=== PATIENT | female | born 1985 | race Caucasian/White ===

== ENCOUNTER → 2017-11-25 | Outpatient (CLI) | payer MEDICAID ==
[~2017-11-25] MED LIST: FERR325T PO; IBUP600 PO; OXYC1SOL5 PO
== END ==
LOC: HPND 13:04
PROVIDERS: ATTEND Obstetrics & Gynecology
DX: O36.63X0 Maternal care for excessive fetal growth, third trimester, not applicable or unspecified (principal)
CPT/HCPCS: 76816

== ENCOUNTER → 2018-01-11 | Outpatient (CLI) | payer MEDICAID | LOC: HPND 08:31 | PROVIDERS: ATTEND Obstetrics & Gynecology | DX: O36.63X0 Maternal care for excessive fetal growth, third trimester, not applicable or unspecified (principal); O09.293 Supervision of pregnancy with other poor reproductive or obstetric history, third trimester | CPT/HCPCS: 76816 ==

== ENCOUNTER 2018-01-20 09:30 | Inpatient (IN) | payer MEDICAID ==
[2018-01-20] VITALS (9 sets, daily range): BP systolic 98–147; BP diastolic 58–92; PULSE 50–80; RESP 11–20; TEMP 97.7–98.8; O2SAT 95–99
[~2018-01-20] VITALS: Ht 152.4 cm; Wt 86.0 kg
[2018-01-20] MEDS ORDERED: LACTATED RINGER'S 1000 ML INJ 1,000 ML IV ONE (09:50)
[2018-01-20] MEDS ORDERED: LACTATED RINGER'S 1000 ML INJ 1,000 ML IV SCH ×2 (10:20→18:39)
[2018-01-20] MEDS ORDERED: ceFAZolin 2 GM in NS 100 ML IV SCH (10:45)
[2018-01-20 10:54] LABS: AUTOMATED NEUTROPHIL # 7.7 TH/MM3 (1.8-7.7); BASOPHIL # 0.1 TH/MM3 (0-0.2); BASOPHIL % 0.6 % (0.0-2.0); EOSINOPHIL # 0.1 TH/MM3 (0-0.4); EOSINOPHIL % 0.9 % (0.0-4.0); HEMATOCRIT 30.8 % (35.0-46.0); HEMOGLOBIN 9.9 GM/DL (11.6-15.3); LYMPH % 20.7 % (9.0-44.0); LYMPHOCYTE # 2.2 TH/MM3 (1.0-4.8); MEAN CELL VOLUME 74.3 FL (80.0-100.0); MEAN CORPUSCULAR HEMOGLOBIN 23.8 PG (27.0-34.0); MEAN PLATELET VOLUME 8.6 FL (7.0-11.0); MONO % 6.6 % (0.0-8.0); MONOCYTE # 0.7 TH/MM3 (0-0.9); NEUT % 71.2 % (16.0-70.0); PLATELET COUNT 177 TH/MM3 (150-450); RED BLOOD COUNT 4.15 MIL/MM3 (4.00-5.30); RED CELL DISTRIBUTION WIDTH 18.4 % (11.6-17.2); WHITE BLOOD COUNT 10.8 TH/MM3 (4.0-11.0)
[2018-01-20] MEDS ORDERED: MORPHINE SULFATE PF 5 MG/10 ML VIAL ONE (10:59)
[2018-01-20] MEDS ORDERED: ACETAMINOPHEN 1000 MG/100 ML 100 ML IV ONE (10:59)
[2018-01-20] MEDS ORDERED: ceFAZolin 2 GM PREMIX 50 ML IV SCH (11:00)
[2018-01-20 11:03] LABS: BILIRUBIN, URINE NEG (NEG); BLOOD, URINE NEG (NEG); GLUCOSE,URINE NEG (NEG); KETONE, URINE NEG (NEG); MUCUS URINE FEW /lpf (OCC); NITRITE,URINE NEG (NEG); PH, URINE 6.5 (5.0-8.5); SQUAMOUS EPITHELIAL CELL URINE 6 /hpf (0-5); URINE COLOR YELLOW (YELLW/STRAW); URINE LEUKOCYTE ESTERASE NEG (NEG)
[2018-01-20] MEDS ORDERED: CITRIC ACID-SODIUM CITRATE LIQ 30 ML UDC PO SCH (11:30)
[2018-01-20] MEDS ORDERED: LACTATED RINGER'S 1000 ML INJ 2,000 ML IV ONE (12:00)
[2018-01-20] MEDS ORDERED: SUCCINYLCHOLINE CHLORIDE 100 MG/5 ML SYRINGE IV PUSH ONE (12:00)
[2018-01-20] MEDS ORDERED: OXYTOCIN 10 UNIT/ML AMP IV ONE (12:00)
[2018-01-20] MEDS ORDERED: ONDANSETRON HCL 4 MG/2 ML VIAL IV ONE (12:00)
[2018-01-20] MEDS ORDERED: PROPOFOL 200 MG/20 ML AMP IV ONE (12:00)
[2018-01-20] MEDS ORDERED: DEXAMETHASONE SOD PHOS 4 MG/ML VIAL IV ONE (12:00)
[2018-01-20] MEDS ORDERED: KETOROLAC TROMETHAMINE 30 MG/ML (IVP) VIAL IV PUSH ONE (12:00)
[2018-01-20] MEDS ORDERED: ONDANSETRON ODT 4 MG TAB PO PRN (13:45)
[2018-01-20] MEDS ORDERED: SODIUM CHLORIDE 0.9% FLUSH 10 ML FLUSH IV FLUSH PRN (13:45)
[2018-01-20] MEDS ORDERED: oxyCODONE/ACETAMINOPHEN 5 MG/325 MG TAB PO PRN (13:45)
[2018-01-20] MEDS ORDERED: OXYTOCIN 30 UNITS-500ML PREMIX 500 ML IV ONE (13:45)
[2018-01-20] MEDS ORDERED: DOCUSATE SODIUM 50 MG/SENNA 8.6 MG TAB PO PRN (13:45)
[2018-01-20] MEDS ORDERED: ACETAMINOPHEN 325 MG TAB PO PRN (13:45)
[2018-01-20] MEDS ORDERED: SIMETHICONE 80 MG CHEWABLE TAB PO PRN (13:45)
[2018-01-20] MEDS ORDERED: NALOXONE HCL 0.4 MG/ML AMP IV PUSH PRN (14:15)
[2018-01-20] MEDS ORDERED: MORPHINE SULFATE 30 MG/30 ML PCA IV SCH (14:15)
[2018-01-20] MEDS: PCA - TOTAL MG MORPHINE DELIVERED PER SHIFT SCH (14:15)
[2018-01-20] MEDS ORDERED: diphenhydrAMINE HCL 25 MG CAP PO PRN (14:15)
[2018-01-20] MEDS ORDERED: OXYTOCIN 30 UNITS-500ML PREMIX 500 ML ONE (14:15)
--- NOTE | 2018-01-20 14:40 | HHI.HP ---
HPI Chief Complaint Repeat and Bilateral Tubal Ligation. Date Seen: January 20, 2018 Travel History International Travel<30 Days: No Contact w/Intl Traveler<30Days: No Known Affected Area: No History of Present Illness HPI Patient is a 32 year old at 39-0/7 weeks gestation who presents today for repeat and bilateral tubal ligation. She denies any concerns or issues today. No contractions, no vaginal bleeding or discharge. No gush or leaking of fluid. Positive movement. History Past Medical History Medical History: Denies Significant Hx Obstetric History Obstetric History 2007 and 2015 Past Surgical History Narrative Surgical x 2 Family History Family History: Negative Social History Alcohol Use: No Tobacco Use: No Substance Abuse: No Allergies-Medications (Allergen,Severity, Reaction): Coded Allergies: No Known Allergies (Verified , 12/02/15) Home Meds Discontinued Reported Medications Ferrous Sulfate (Iron) 325 Mg Tab, 325 MG PO DAILY, TAB 12/02/15 Discontinued Scripts Oxycodone W/ Acetaminophen (Oxycodone/Acetaminophen 5-325 mg/5Ml) 5 mg/325 mg Tab, 1 TAB PO Q4H Y for moderate pain, #30 TAB Prov:Wilver Cardona MD 12/04/15 Ibuprofen (Motrin 600 Mg Tab) 600 Mg Tab, 600 MG PO Q6H for Pain Management, # 30 TAB 1 Refill Prov:Wilver Cardona MD 12/04/15 Review of Systems Except as stated in HPI: all other systems reviewed are Neg General / Constitutional: No: Fever, Chills Eyes: No: Visual changes HENT: No: Headaches Cardiovascular: No: Chest Pain or Discomfort Respiratory: No: Short of Breath Gastrointestinal: No: Nausea, Vomiting Genitourinary: No: Hematuria, Pelvic Pain, Discharge, Vaginal Bleeding Musculoskeletal: No: Edema Neurologic: No: Headache Psychiatric: No: Substance Abuse Physical Exam Vital Signs Date Time Temp Pulse Resp B/P (MAP) Pulse Ox O2 Delivery O2 Flow Rate FiO2 01/20/18 14:36 95 01/20/18 14:36 67 20 132/61 (84) 01/20/18 14:21 18 97 01/20/18 14:21 75 132/58 (82) 01/20/18 14:07 73 19 147/92 (110) 99 01/20/18 13:52 98.8 80 15 97 01/20/18 13:52 119/69 (86) 01/20/18 10:06 79 98/64 (75) Narrative GENERAL: Well-nourished, well-developed patient. SKIN: Warm and dry. HEAD: Normocephalic and atraumatic. EYES: No scleral icterus. No injection or drainage. ENT: No nasal drainage noted. Mucous membranes pink. Airway patent. NECK: Supple, trachea midline. No JVD. CARDIOVASCULAR: Regular rate and rhythm without murmurs, gallops, or rubs. RESPIRATORY: Breath sounds equal bilaterally. No accessory muscle use. ABDOMEN/GI: Abdomen soft, non-tender, bowel sounds present, no rebound, no guarding Gravid to 39 weeks size Fundal Height: 39 GENITOURINARY: External Genitalia: intact and normal in appearance Membranes: intact Uterine Contractions: occasional FHT's: Category: I Baseline: 140 Reactive: + Variability: moderate Decels: none EXTREMITIES: No cyanosis or edema. BACK: Nontender without obvious deformity. NEUROLOGICAL: Awake and alert. Motor and sensory grossly within normal limits. Normal speech. Caprini VTE Risk Assessment Caprini VTE Risk Assessment: No/Low Risk (score <= 1) Caprini Risk Assessment Model Point Value = 1 Point Value = 2 Point Value = 3 Point Value = 5 Age 41-60 Minor surgery BMI > 25 kg/m2 Swollen legs Varicose veins or History of unexplained or recurrent spontaneous Oral contraceptives or hormone replacement Sepsis (< 1 month) Serious lung disease, including pneumonia (< 1 month) Abnormal pulmonary function Acute myocardial infarction Congestive heart failure (< 1 month) History of inflammatory bowel disease Medical patient at bed rest Age 61-74 Arthroscopic surgery Major open surgery (> 45 min) Laparoscopic surgery (> 45 min) Malignancy Confined to bed (> 72 hours) Immobilizing plaster cast Central venous access Age >= 75 History of VTE Family history of VTE Factor V Leiden Prothrombin [id number] Lupus anticoagulant Anticardiolipin antibodies Elevated serum homocysteine Heparin-induced thrombocytopenia Other congenital or acquired thrombophilia Stroke (< 1 month) Elective arthroplasty Hip, pelvis, or leg fracture Acute spinal cord injury (< 1 month) Prophylaxis Regimen Total Risk Factor Score Risk Level Prophylaxis Regimen 0-1 Low Early ambulation 2 Moderate Order ONE of the following: *Sequential Compression Device (SCD) *Heparin 5000 units SQ BID 3-4 Higher Order ONE of the following medications: *Heparin 5000 units SQ TID *Enoxaparin/Lovenox 40 mg SQ daily (WT < 150 kg, CrCl > 30 mL/min) *Enoxaparin/Lovenox 30 mg SQ daily (WT < 150 kg, CrCl > 10-29 mL/min) *Enoxaparin/Lovenox 30 mg SQ BID (WT < 150 kg, CrCl > 30 mL/min) AND/OR *Sequential Compression Device (SCD) 5 or more Highest Order ONE of the following medications: *Heparin 5000 units SQ TID (Preferred with Epidurals) *Enoxaparin/Lovenox 40 mg SQ daily (WT < 150 kg, CrCl > 30 mL/min) *Enoxaparin/Lovenox 30 mg SQ daily (WT < 150 kg, CrCl > 10-29 mL/min) *Enoxaparin/Lovenox 30 mg SQ BID (WT < 150 kg, CrCl > 30 mL/min) AND *Sequential Compression Device (SCD) Data Data Vital Signs Reviewed: Yes Orders Orders Admit To Inpatient (01/20/18 ) Lactated Ringer's 1000 Ml Inj (Lr 1000 M (01/20/18 09:50) Lactated Ringer's 1000 Ml Inj (Lr 1000 M (01/20/18 10:20) Cefazolin 2 Gm Premix (Ancef 2 Gm Premix (01/20/18 11:00) Citric Acid-Sodium Citrate Liq (Bicitra (01/20/18 11:30) Type And Screen (01/20/18 09:50) Complete Blood Count With Diff (01/20/18 09:50) Urinalysis - C+S If Indicated (01/20/18 09:50) Drug Screen, Random Urine (01/20/18 09:50) Inpatient Certification (01/20/18 ) Code Status (01/20/18 09:50) Cefazolin Inj (Ancef Inj) (01/20/18 10:45) Morphine Pf Inj (Duramorph Pf 0.5 Mg/Ml (01/20/18 10:59) Acetaminophen 1000 Mg/100 Ml (Ofirmev 10 (01/20/18 10:59) Vital Signs (Adult) Q4HX24,Q12H (01/20/18 13:39) Activity Bed Rest (01/20/18 13:39) ^ Discontinue (01/21/18 13:39) Remove Dressing (01/21/18 13:39) ^ Binder (01/20/18 ) ^ Rhogam (01/20/18 13:39) Diet Regular Basic (01/20/18 Lunch) Lactated Ringer's 1000 Ml Inj (Lr 1000 M (01/20/18 18:39) Oxytocin 30 Units-500ml Premix (Pitocin (01/20/18 13:45) Oxytocin 30 Units-500ml Premix (Pitocin (01/20/18 18:45) Sodium Chloride 0.9% Flush (Ns Flush) (01/20/18 21:00) Sodium Chloride 0.9% Flush (Ns Flush) (01/20/18 13:45) Simethicone Chew (Mylicon Chew) (01/20/18 13:45) Acetaminophen (Tylenol) (01/20/18 13:45) Ibuprofen (Motrin) (01/20/18 13:45) Oxycodone-Acetamin 5-325 Mg (Percocet (01/20/18 13:45) Oxycodone-Acetamin 5-325 Mg (Percocet (01/20/18 13:45) Docusate Sodium-Senna (Maribel-Colace) (01/20/18 13:45) Zolpidem (Ambien) (01/20/18 21:00) Fzrpqnk-Rwesz-Pwsqffe Inj (M-M-R Ii Inj) (01/21/18 16:00) Btjm-Pgb-Ehtsyg (Booster) Inj (Boostrix (01/21/18 16:00) Complete Blood Count With Diff (01/21/18 06:00) Remove Urinary Catheter .ONCE (01/21/18 13:39) Ondansetron Odt (Zofran Odt) (01/20/18 13:45) Oxytocin 30 Units-500ml Premix (Pitocin (01/20/18 14:15) ^ Monitor (01/20/18 14:15) Notify Dr: Blood Pressure (01/20/18 14:15) Notify Dr: Respiratory Rate (01/20/18 14:15) Notify Dr: Other (01/20/18 14:15) ^ Medication Alert (01/20/18 14:15) Naloxone Inj (Narcan Inj) (01/20/18 14:15) Diphenhydramine (Benadryl) (01/20/18 14:15) Morphine 1 Mg/Ml Pre K Teacher (Morphine 1 Mg/Ml P (01/20/18 14:15) Pre K Teacher Total Dose - Morphine (01/20/18 14:15) Fentanyl Inj (Fentanyl Inj) (01/20/18 14:39) Group B Strep: Negative Labs Laboratory Tests Test 01/20/18 10:15 White Blood Count 10.8 Red Blood Count 4.15 Hemoglobin 9.9 Hematocrit 30.8 Mean Corpuscular Volume 74.3 Mean Corpuscular Hemoglobin 23.8 Mean Corpuscular Hemoglobin Concent 32.0 Red Cell Distribution Width 18.4 Platelet Count 177 Mean Platelet Volume 8.6 Neutrophils (%) (Auto) 71.2 Lymphocytes (%) (Auto) 20.7 Monocytes (%) (Auto) 6.6 Eosinophils (%) (Auto) 0.9 Basophils (%) (Auto) 0.6 Neutrophils # (Auto) 7.7 Lymphocytes # (Auto) 2.2 Monocytes # (Auto) 0.7 Eosinophils # (Auto) 0.1 Basophils # (Auto) 0.1 CBC Comment DIFF FINAL Differential Comment Urine Color YELLOW Urine Turbidity CLEAR Urine pH 6.5 Urine Specific [place] 1.016 Urine Protein TRACE Urine Glucose (UA) NEG Urine Ketones NEG Urine Occult Blood NEG Urine Nitrite NEG Urine Bilirubin NEG Urine Urobilinogen LESS THAN 2.0 Urine Leukocyte Esterase NEG Urine RBC LESS THAN 1 Urine Squamous Epithelial Cells 6 Urine Mucus FEW Microscopic Urinalysis Comment CULT NOT INDICATED Urine Opiates Screen NEG Urine Barbiturates Screen NEG Urine Amphetamines Screen NEG Urine Benzodiazepines Screen NEG Urine Cocaine Screen NEG Urine Cannabinoids Screen NEG Assessment/Plan Assessment and Plan 32 year old at 39-0/7 weeks gestation. 1. IUP- Category I tracing, reassuring. 2. Repeat and bilateral tubal ligation. 3. GBS negative. dw Becka Ibrahim MD R3 January 20, 2018 14:40
[2018-01-20] MEDS ORDERED: fentaNYL CITRATE 250 MCG/5 ML AMP IV ONE (16:00)
[2018-01-20] MEDS ORDERED: EPIDURAL-NO SYSTEMIC NARCOTICS PRN (16:00)
[2018-01-20] MEDS ORDERED: EPIDURAL-DO NOT ADMINISTER ANTICOAGULANTS PRN (16:00)
[2018-01-20] MEDS ORDERED: EPIDURAL-DIPHENHYDRAMINE HCL 50 MG CAP PO PRN (16:00)
[2018-01-20] MEDS ORDERED: EPIDURAL-NALOXONE HCL 0.4 MG/ML AMP IV PUSH PRN (16:00)
[2018-01-20] MEDS ORDERED: EPIDURAL-DIPHENHYDRAMINE HCL 50 MG/ML VIAL IV PUSH PRN (16:00)
[2018-01-20] MEDS ORDERED: OXYTOCIN 30 UNITS-500ML PREMIX 500 ML IV PRN (18:45)
[2018-01-20] MEDS ORDERED: ZOLPIDEM TARTRATE 5 MG TAB PO PRN (21:00)
[2018-01-20] MEDS ORDERED: SODIUM CHLORIDE 0.9% FLUSH 10 ML FLUSH IV FLUSH SCH (21:00)
[2018-01-21 04:01] VITALS: BP 97/59; PULSE 61; RESP 17; TEMP 99.3
[2018-01-21] MEDS: IBUPROFEN 600 MG TAB PO PRN ×2 (05:27→15:21)
[2018-01-21 05:56] LABS: AUTOMATED NEUTROPHIL # 9.8 TH/MM3 (1.8-7.7); BASOPHIL # 0.1 TH/MM3 (0-0.2); BASOPHIL % 0.7 % (0.0-2.0); EOSINOPHIL % 0.2 % (0.0-4.0); HEMATOCRIT 27.4 % (35.0-46.0); HEMOGLOBIN 8.6 GM/DL (11.6-15.3); LYMPH % 16.9 % (9.0-44.0); LYMPHOCYTE # 2.2 TH/MM3 (1.0-4.8); MEAN CELL VOLUME 74.1 FL (80.0-100.0); MEAN CORPUSCULAR HEMOGLOBIN 23.3 PG (27.0-34.0); MEAN CORPUSCULAR HGB CONC 31.4 % (32.0-36.0); MEAN PLATELET VOLUME 8.6 FL (7.0-11.0); MONO % 6.1 % (0.0-8.0); MONOCYTE # 0.8 TH/MM3 (0-0.9); NEUT % 76.1 % (16.0-70.0); PLATELET COUNT 162 TH/MM3 (150-450); RED BLOOD COUNT 3.69 MIL/MM3 (4.00-5.30); RED CELL DISTRIBUTION WIDTH 18.3 % (11.6-17.2); WHITE BLOOD COUNT 12.9 TH/MM3 (4.0-11.0)
[2018-01-21 07:20] VITALS: BP 106/66; PULSE 63; RESP 18; TEMP 98.3
[2018-01-21 07:31] VITALS: BP 106/66; PULSE 63; RESP 18
--- NOTE | 2018-01-21 08:17 | HHI.OB ---
Subjective Post Operative Day: 1 Remarks Doing well Pain is controlled on [employer]MENT MANAGER pump now Baby is doing well Objective Vitals/I&O Vital Signs Date Time Temp Pulse Resp B/P (MAP) Pulse Ox O2 Delivery O2 Flow Rate FiO2 01/21/18 07:31 63 18 106/66 (79) 01/21/18 07:20 63 18 106/66 (79) 01/21/18 07:20 98.3 01/21/18 04:01 99.3 61 17 97/59 (72) 01/20/18 23:56 97.7 53 16 102/63 (76) 01/20/18 21:00 97.9 50 17 106/63 (77) 01/20/18 14:59 98.2 01/20/18 14:58 54 11 137/63 (87) 96 01/20/18 14:58 13 01/20/18 14:55 18 01/20/18 14:36 95 01/20/18 14:36 67 20 132/61 (84) 01/20/18 14:21 18 97 01/20/18 14:21 75 132/58 (82) 01/20/18 14:07 73 19 147/92 (110) 99 01/20/18 13:52 98.8 80 15 97 01/20/18 13:52 119/69 (86) 01/20/18 10:06 79 98/64 (75) Result Diagram: 01/21/18 0442 Objective Remarks GENERAL: Well-nourished, well-developed patient. CARDIOVASCULAR: Regular rate and rhythm without murmurs, gallops, or rubs. RESPIRATORY: Breath sounds equal bilaterally. No accessory muscle use. ABDOMEN/GI: Abdomen soft, non-tender, bowel sounds present. Incision: Clean, dry and intact. Fundus: Firm, non-tender at umbilicus. GENITOURINARY: Light to moderate bleeding. EXTREMITIES: No cyanosis or edema, non-tender, without signs of DVT. Medications and IVs Current Medications Medications (Trade) Dose Ordered Sig/Galileo Route Start Time Stop Time Status Last Admin Lactated Ringer's 1,000 ml @ 100 mls/hr Q10H IV 01/20/18 18:39 01/21/18 14:38 Oxytocin 500 ml @ 100 mls/hr UNSCH X1 PRN IV 01/20/18 18:45 01/21/18 18:44 (NS Flush) 2 ml BID IV FLUSH 01/20/18 21:00 (NS Flush) 2 ml UNSCH PRN IV FLUSH 01/20/18 13:45 (Mylicon Chew) 80 mg QID PRN PO 01/20/18 13:45 (Tylenol) 650 mg Q6H PRN PO 01/20/18 13:45 (Motrin) 600 mg Q6H PRN PO 01/20/18 13:45 01/21/18 05:27 (Percocet 5-325 Mg) 1 tab Q4H PRN PO 01/20/18 13:45 (Percocet 5-325 Mg) 2 tab Q4H PRN PO 01/20/18 13:45 (Maribel-Colace) 2 tab Q12H PRN PO 01/20/18 13:45 (Ambien) 5 mg HS PRN PO 01/20/18 21:00 (M-M-R Ii Inj) 0.5 ml ONCE ONCE SQ 01/21/18 16:00 01/21/18 16:01 (Boostrix Inj) 0.5 ml ONCE ONCE IM 01/21/18 16:00 01/21/18 16:01 (Zofran Odt) 4 mg Q6H PRN PO 01/20/18 13:45 (Narcan Inj) 0.4 mg UNSCH PRN IV PUSH 01/20/18 14:15 (Benadryl) 25 mg Q6H PRN PO 01/20/18 14:15 (Morphine 1 Mg/ ml [employer]NAGER) 30 mg UNSCH IV 01/20/18 14:15 01/20/18 14:55 [employer]GER Dosage Infused (Pha) 1 Q8HR .XX 01/20/18 14:15 ([facility]) NO SYSTEMIC NARCOTICS TO BE GIVEN FO... UNSCH PRN .XX 01/20/18 16:00 01/21/18 15:59 (Narcan Inj) 0.4 mg UNSCH PRN IV PUSH 01/20/18 16:00 01/21/18 15:59 (Benadryl Inj) 25 mg Q6H PRN IV PUSH 01/20/18 16:00 01/21/18 15:59 (Benadryl) 50 mg Q6H PRN PO 01/20/18 16:00 01/21/18 15:59 ([facility]) ALL NURSING DEPARTMENTS UNSCH PRN .XX 01/20/18 16:00 01/21/18 15:59 Assessment/Plan Assessment and Plan POD #1 S/P C/S BTL. Anemia Doing well. Routine care Wilver Cardona MD January 21, 2018 08:17
[2018-01-21] MEDS ORDERED: OXYC1TAB63 PO (08:22)
[2018-01-21] MEDS ORDERED: IBUP-232 PO (08:22)
--- NOTE | 2018-01-21 08:47 | HHI.DCPOC ---
Discharge Care Plan Your Health Problems Are: delivery Report Symptoms to Your Doctor -Temperature above 100.5 degrees -Redness, of incision or excessive or foul smelling drainage -Unusual pain or calf pain -Increased vaginal bleeding -Painful or difficulty urinating -Feelings of extreme sadness or anxiety after 2 weeks Goals to Promote Your Health * To prevent worsening of your condition and complications * To maintain your health at the optimal level Directions to Meet Your Goals Take your medications as prescribed Follow your dietary instruction Follow activity as directed Ensure plenty of rest for recovery Drink fluids for hydration Keep your appointments as scheduled Take your immunizations and boosters as scheduled If your symptoms worsen call your PCP, if no PCP go to Urgent Care Center or Emergency Room Smoking is Dangerous to Your Health. Avoid second hand smoke Call the 24-hour crisis hotline for domestic abuse at M[facility] Burkett January 21, 2018 08:47
[2018-01-21] MEDS: PCA - TOTAL MG MORPHINE DELIVERED PER SHIFT SCH (09:40)
--- NOTE | 2018-01-21 10:52 | MP ---
cc: Wilver Cardona MD DATE OF OPERATION: 01/20/2018 PREOPERATIVE DIAGNOSES: 1. Intrauterine at 39+ weeks. 2. Previous desires repeat. 3. Desires permanent sterilization. POSTOPERATIVE DIAGNOSES: 1. Intrauterine at 39+ weeks. 2. Previous desires repeat. 3. Desires permanent sterilization. PROCEDURE PERFORMED: Repeat low transverse section and bilateral tubal ligation. ANESTHESIA: Spinal, followed by general. SURGEON: Wilver Cardona MD FINDINGS: Normal uterus, normal tubes, normal ovaries, a viable infant with good Apgars. COMPLICATIONS: None. COUNTS: Correct. ESTIMATED BLOOD LOSS: 600 mL. FLUIDS: Crystalloids. CONDITION: The patient tolerated the procedure well, went to the recovery room in good condition. PROCEDURE: Under an adequate level of anesthetic, she was prepped and draped for abdominal surgery. The old Pfannenstiel incision was removed and excised completely. Incision was taken down to the fascia. The fascia was taken off the rectus muscle by blunt and sharp dissection. Once this had been accomplished, the rectus muscles were gently stretched and the peritoneum entered under direct vision without incident. A bladder flap was created over the lower uterine segment and the bladder moved out of harms way. The incision over the uterus was made in a transverse manner and taken down in the midline until the uterine cavity was entered. The vertex was grasped and using suction, the was delivered with gentle fundal pressure. The hypopharynx and nasopharynx were suctioned and the cord was doubly clamped and cut and the was handed to the resuscitation team present. The placenta was removed manually. The uterus was curettaged twice with wet laps and irrigated with a moderate amount of fluid. The uterine incision was then repaired with 2-0 Vicryl in a running locking fashion, the second layer imbricating the first. Hemostasis was excellent. Attention was turned to the fallopian tubes. The left fallopian tube was identified, walked to the fimbriated end, knuckled over and using #2 plain suture, a small portion of that tube was ligated and removed sharply and turned in for pathologic diagnosis. This was repeated on the contralateral side. Hemostasis was excellent. The cul-de-sac and gutters were then cleaned of blood and debris. Irrigation was clear. At this time, the uterus was delivered back into the abdomen. The rectus muscle was reapproximated with 0 Vicryl in an interrupted fashion. The fascia was repaired from lateral to midline with 0 Vicryl bilaterally with 0 Vicryl in a running fashion. Subcu was repaired with 3-0 Vicryl. The skin was repaired with a 4-0 Monocryl in a subcuticular fashion. Steri-Strips were applied. She tolerated the procedure well and was taken to the Recovery Room in good condition. R. MD RONI Carrasco/BELÉN , 10:38 AM , 10:51 AM
[2018-01-21] MEDS: oxyCODONE/ACETAMINOPHEN 5 MG/325 MG TAB PO PRN ×2 (15:22→19:31)
[2018-01-21] MEDS ORDERED: DIPHTH/TETANUS/ACEL PERTUSSIS (BOOSTER) 0.5 ML VIAL/PFS IM ONE (16:00)
[2018-01-21] MEDS ORDERED: MEASLES, MUMPS, RUBELLA VACCINE 0.5 ML VIAL SQ ONE (16:00)
[2018-01-21 20:24] VITALS: BP 107/69; PULSE 55; RESP 17; TEMP 98.1
[2018-01-22] MEDS: oxyCODONE/ACETAMINOPHEN 5 MG/325 MG TAB PO PRN ×3 (01:03→12:55)
[2018-01-22] MEDS: IBUPROFEN 600 MG TAB PO PRN ×2 (01:03→08:29)
[2018-01-22 08:00] VITALS: BP 112/69; PULSE 66; RESP 20; TEMP 98.2; O2SAT 96
--- NOTE | 2018-01-22 08:06 | HHI.OB ---
Subjective Post Operative Day: 2 Remarks Doing well, ambulating, voiding, pain well controlled, vaginal bleeding less than menses. Objective Vitals/I&O Vital Signs Date Time Temp Pulse Resp B/P (MAP) Pulse Ox O2 Delivery O2 Flow Rate FiO2 01/21/18 20:24 98.1 55 17 107/69 (82) 01/21/18 09:40 18 Result Diagram: 01/21/18 0442 Objective Remarks GENERAL: Well-nourished, well-developed patient. CARDIOVASCULAR: Regular rate and rhythm without murmurs, gallops, or rubs. RESPIRATORY: Breath sounds equal bilaterally. No accessory muscle use. ABDOMEN/GI: Abdomen soft, non-tender, bowel sounds present. Incision: Clean, dry and intact. Fundus: Firm, non-tender at umbilicus. GENITOURINARY: Light to moderate bleeding. EXTREMITIES: No cyanosis or edema, non-tender, without signs of DVT. Medications and IVs Current Medications Medications (Trade) Dose Ordered Sig/Galileo Route Start Time Stop Time Status Last Admin (NS Flush) 2 ml BID IV FLUSH 01/20/18 21:00 (NS Flush) 2 ml UNSCH PRN IV FLUSH 01/20/18 13:45 (Mylicon Chew) 80 mg QID PRN PO 01/20/18 13:45 (Tylenol) 650 mg Q6H PRN PO 01/20/18 13:45 (Motrin) 600 mg Q6H PRN PO 01/20/18 13:45 01/22/18 01:03 (Percocet 5-325 Mg) 1 tab Q4H PRN PO 01/20/18 13:45 01/22/18 01:03 (Percocet 5-325 Mg) 2 tab Q4H PRN PO 01/20/18 13:45 (Maribel-Colace) 2 tab Q12H PRN PO 01/20/18 13:45 01/21/18 15:21 (Ambien) 5 mg HS PRN PO 01/20/18 21:00 (Zofran Odt) 4 mg Q6H PRN PO 01/20/18 13:45 (Benadryl) 25 mg Q6H PRN PO 01/20/18 14:15 Assessment/Plan Assessment and Plan 32-year-old status post repeat LTCS and BTL at 39 weeks 1. Postoperative day #2: Afebrile, vital signs stable, meeting milestones, discussed options of discharge home today versus tomorrow, patient will let nursing know. Discussed postoperative and precautions, expectations and follow-up. -Female . 2. Anemia: Patient asymptomatic, begin iron as an outpatient. Dung Browning MD January 22, 2018 08:06
== END 2018-01-22 13:27 | disposition home or self-care (01) | DRG 766 ==
LOC: H2EB 09:30 → H1EA 15:40
PROVIDERS: ADMIT Obstetrics & Gynecology; ATTEND Obstetrics & Gynecology
PROC: 10D00Z1 Extraction of Products of Conception, Low, Open Approach (ICD-10-PCS; principal; 2018-01-20)
PROC: 0UB70ZZ Excision of Bilateral Fallopian Tubes, Open Approach (ICD-10-PCS; 2018-01-20)
DX: O34.211 Maternal care for low transverse scar from previous cesarean delivery (principal); D64.9 Anemia, unspecified; O99.02 Anemia complicating childbirth; Z30.2 Encounter for sterilization; Z37.0 Single live birth; Z3A.39 39 weeks gestation of pregnancy
CPT/HCPCS: 59025; 80307; 81001; 85025; 86850; 86900; 86901; 88302; 90715; J0131; J0330; J0690; J1100; J1885; J2270; J2274; J2405; J2590; J3010; J7120